=== PATIENT | female | born 1965 | race Caucasian/White ===

== ENCOUNTER 2021-03-18 03:38 | Emergency (ER) | payer MEDICAID ==
[~2021-03-18] VITALS: Ht 172.7 cm; Wt 77.9 kg
[2021-03-18 03:39] VITALS: BP 121/81
--- NOTE | 2021-03-18 03:58 | NUR ---
Reports unable to urinate for 3 days, bladder scanner shows 250ml urine. Pt says [employer] she tried voiding but was unable. Denies dysuria.
--- NOTE | 2021-03-18 04:24 | NUR ---
Pt requested cath be placed to get urine sample and drain bladder. Larkin placed via sterile technique, fredis clear urine drained approx 200ml; sample sent to lab. Pt tolerated px well.
--- NOTE | 2021-03-18 04:27 | NUR ---
Previous note by Imelda Zuñiga RN charted in error under Geetha. RN
[2021-03-18 04:41] LABS: MICROSCOPIC INDICATED
--- NOTE | 2021-03-18 05:18 | NUR ---
REPORT FROM MEGHAN PAUL
== END 2021-03-18 06:04 | disposition home or self-care (01) ==
LOC: ED 05:58
DX: R33.9 Retention of urine, unspecified (principal); R39.15 Urgency of urination; F17.200 Nicotine dependence, unspecified, uncomplicated
CPT/HCPCS: 81001; 99283